=== PATIENT | female | born 1995 | race Two or more races ===

== ENCOUNTER → 2024-12-10 | Outpatient (CLI) | payer MEDICAID, SELFPAY ==
--- NOTE | 2024-12-10 16:19 | XR_ITS ---
Examination: Right knee 4 views Technique: AP oblique lateral axial right knee 4 views Exam date and time: December 10, 2024 1609 hrs. Indications: Right knee pain beginning one week ago Findings: Moderate osteopenia Mild narrowing medial patellofemoral joints No patellar dislocation Impression: Mild narrowing medial patellofemoral joints
== END | disposition home or self-care (01) ==
LOC: CDIM 16:13
PROVIDERS: Referring Provider Physician Assistant; Visit Provider Physician Assistant
DX: M25.861 Other specified joint disorders, right knee (principal)
CPT/HCPCS: 73564